=== PATIENT | female | born 1970 | race Caucasian/White ===

== ENCOUNTER 2020-04-30 07:18 | Emergency (ER) | payer OTHER ==
[~2020-04-30] VITALS: Ht 165.1 cm; Wt 89.4 kg
[2020-04-30 07:31] VITALS: BP 167/93; Ht 165.1 cm; Wt 89.4 kg
[2020-04-30 09:39] LABS: BASOPHIL % 0.7 % (0.2-1.3); PLATELET COUNT 395 x10^3mcL (179-408)
[2020-04-30 10:08] LABS: CALCIUM 8.7 mg/dL (8.5-10.1); CARBON DIOXIDE 19.7 mmol/L (21-32); CHLORIDE SERUM 105 mmol/L (98-107); CREATININE SERUM 0.6 mg/dL (0.6-1.0); GFR1 > 60 mL/min; GLUCOSE SERUM 95 mg/dL (74-106); POTASSIUM SERUM 4.4 mmol/L (3.5-5.1); SODIUM SERUM 139 mmol/L (136-145)
[2020-04-30 10:10] LABS: RED CELL DISTRIBUTION WIDTH 21.6 % (12.3-17.7)
[2020-04-30 10:14] LABS: ALBUMIN 3.7 g/dL (3.4-5.0); ALKALINE PHOSPHATASE 80 U/L (46-116); AST/SGOT 22 U/L (15-37); BILIRUBIN TOTAL 0.38 mg/dL (0.20-1.00); LIPASE 97 IU/L (73-393); TOTAL PROTEIN, SERUM 7.7 g/dL (6.4-8.2)
[2020-04-30 10:39] LABS: ALT/SGPT 21 U/L (14-59)
== END 2020-04-30 11:27 | disposition home or self-care (01) ==
LOC: ED 07:18
PROVIDERS: Emergency Medicine
DX: D25.9 Leiomyoma of uterus, unspecified (principal)
CPT/HCPCS: J1885; J2405; J7030

== ENCOUNTER 2020-06-01 01:25 | Emergency (ER) | payer OTHER ==
[~2020-06-01] VITALS: Ht 165.1 cm; Wt 89.9 kg
[2020-06-01 01:45] VITALS: Ht 165.1 cm; Wt 89.9 kg
[2020-06-01 02:53] LABS: BASOPHIL % 1.3 % (0.2-1.3); PLATELET COUNT 361 x10^3mcL (179-408)
[2020-06-01 02:55] LABS: RED CELL DISTRIBUTION WIDTH 18.4 % (12.3-17.7)
[2020-06-01 02:59] LABS: CALCIUM 8.8 mg/dL (8.5-10.1); CARBON DIOXIDE 24.7 mmol/L (21-32); CHLORIDE SERUM 105 mmol/L (98-107); CREATININE SERUM 0.9 mg/dL (0.6-1.0); GFR1 > 60 mL/min; GLUCOSE SERUM 109 mg/dL (74-106); POTASSIUM SERUM 3.7 mmol/L (3.5-5.1); SODIUM SERUM 138 mmol/L (136-145)
[2020-06-01 03:04] LABS: ALBUMIN 3.5 g/dL (3.4-5.0); ALKALINE PHOSPHATASE 83 U/L (46-116); ALT/SGPT 19 U/L (14-59); AST/SGOT 9 U/L (15-37); BILIRUBIN TOTAL 0.26 mg/dL (0.20-1.00); TOTAL PROTEIN, SERUM 7.2 g/dL (6.4-8.2)
[2020-06-01 05:30] VITALS: BP 109/74
== END 2020-06-01 05:30 | disposition home or self-care (01) ==
LOC: ED 01:25
PROVIDERS: Emergency Medicine
DX: R42 Dizziness and giddiness (principal); R51.9 Headache, unspecified; R11.0 Nausea; H53.8 Other visual disturbances
CPT/HCPCS: J2405; Q9967